=== PATIENT | male | born 1935 | race Caucasian/White ===

== ENCOUNTER → 2024-02-09 09:23 | Outpatient (REF) | payer OTHER, SELFPAY | LOC: HWRAD 09:23 | PROVIDERS: ATTENDING PHYSICIAN Internal Medicine Gastroenterology; FAMILY PHYSICIAN Internal Medicine Geriatric Medicine | DX: K63.5 Polyp of colon (principal); Z80.0 Family history of malignant neoplasm of digestive organs; K57.30 Diverticulosis of large intestine without perforation or abscess without bleeding ==

== ENCOUNTER → 2024-03-26 08:03 | Outpatient (REF) | payer OTHER, SELFPAY | LOC: RST 08:03 | PROVIDERS: FAMILY PHYSICIAN Internal Medicine Geriatric Medicine | DX: R13.10 Dysphagia, unspecified (principal) | CPT/HCPCS: 74230; 92611 ==

== ENCOUNTER 2025-04-01 08:28 | Day surgery (SDC) | payer OTHER, SELFPAY ==
--- NOTE | 2025-04-01 10:03 | ITS.CL.CARDI ---
[employer] Of [employer] - Cardioversion
Cardioversion
Procedure Report:
Date of Procedure: 04/01/25
Procedure: Cardioversion
Indication: Symptomatic atrial flutter
Performing Physician: Eddie Mcneil MD
Technique: The patient was brought to the holding area. Signed informed consent was obtained. A time out was called and performed. The patient was anesthetized by the anesthesia service. Anticoagulation status was reviewed and appropriate. R2 pads
were placed anteriorly and posteriorly. A 200 J synchronized biphasic shock restored normal sinus rhythm without significant bradycardia. There were no complications.
Conclusion: Uncomplicated cardioversion from atrial flutter to sinus rhythm.
Recommendation: Routine post cardioversion care. Continue terminal gauger anticoagulation.
== END 2025-04-01 10:46 | disposition home or self-care (01) ==
LOC: CATH 08:28
PROVIDERS: ATTENDING PHYSICIAN Internal Medicine Cardiovascular Disease; FAMILY PHYSICIAN Internal Medicine Geriatric Medicine
DX: I48.92 Unspecified atrial flutter (principal); I48.0 Paroxysmal atrial fibrillation; E03.9 Hypothyroidism, unspecified; E78.2 Mixed hyperlipidemia; K21.9 Gastro-esophageal reflux disease without esophagitis; Z87.891 Personal history of nicotine dependence; Z85.46 Personal history of malignant neoplasm of prostate; Z79.01 Long term (current) use of anticoagulants
CPT/HCPCS: 92960; 93005